=== PATIENT | male | born 1980 | race Caucasian/White ===

== ENCOUNTER 2023-01-23 11:16 | Emergency (ER) | payer BC, OTHER ==
[2023-01-23] MEDS ORDERED: Lidocaine 1% (PF) 30 ML VIAL ONE (11:23)
[2023-01-23] MEDS ORDERED: Boostrix 0.5 ML (Tdap) VIAL (>/=7 yrs of age) ONE (12:16)
[2023-01-23] MEDS ORDERED: Bacitracin 1 PK ONE (12:17)
== END 2023-01-23 12:18 | disposition home or self-care (01) ==
LOC: BURERS 11:16
DX: S61.012A Laceration without foreign body of left thumb without damage to nail, initial encounter (principal); W29.3XXA Contact with powered garden and outdoor hand tools and machinery, initial encounter; Y92.009 Unspecified place in unspecified non-institutional (private) residence as the place of occurrence of the external cause; Z23 Encounter for immunization
CPT/HCPCS: 12002; 90471; 90715; J2001